=== PATIENT | female | born 1975 | race Caucasian/White ===

== ENCOUNTER 2017-12-15 15:37 | Outpatient (CLI) | payer BC ==
--- NOTE | 2017-12-15 16:45 | MRI ---
MRI CERVICAL SPINE NONCONTRAST: 12/15/17 HISTORY: Neck pain with right arm radiculopathy. Pinched nerve. FINDINGS: Spinal cord throughout the cervical levels has a normal appearance without evidence of compression, e xpansion or abnormal signal. Vertebral body heights and alignment are maintained. Hemangiomas are andie arent within the T1 vertebral body. Central canal and neural foramina are patent throughout the cervical spine. At the T2-3 level, there is disc space narrowing and a small focal posterior central disc protrusion that slightly effaces the ventral aspect of the thecal sac and spinal cord. No abnormal signal is andie arent within the cord. IMPRESSION: Small focal posterior disc protrusion at the T2-3 level. Mild effacement of the spinal cord. No evide nce of myelomalacia. POS: TOÑA
== END 2017-12-15 15:38 | disposition home or self-care (01) ==
LOC: SCSMRI 15:37
PROVIDERS: ATTEND Psychiatry & Neurology Neurology
DX: M47.812 Spondylosis without myelopathy or radiculopathy, cervical region (principal); M51.24 Other intervertebral disc displacement, thoracic region
CPT/HCPCS: 72141

== ENCOUNTER 2022-05-06 10:37 | Outpatient (CLI) | payer BC | END 2022-05-06 10:38 | disposition home or self-care (01) | LOC: BICRAD 10:37 | PROVIDERS: ATTEND Internal Medicine Medical Oncology | DX: R63.4 Abnormal weight loss (principal); D05.12 Intraductal carcinoma in situ of left breast; Z79.899 Other long term (current) drug therapy | CPT/HCPCS: 71046 ==